=== PATIENT | male | born 1935 | race Caucasian/White ===

== ENCOUNTER → 2017-04-23 | Day surgery (SDC) | payer MEDICARE, OTHER ==
[~2017-04-23] MED LIST: Lactated Ringers 1,000 ML IV SCH; Propofol 200 MG/20 ML SDV IV ONE
[2017-04-23 12:20] VITALS: BP 132/65
--- NOTE | 2017-04-26 07:14 | OR ---
DATE OF OPERATION: 04/23/2017 PREOPERATIVE DIAGNOSIS: POSITIVE COLOGUARD. POSTOPERATIVE DIAGNOSIS: POSITIVE COLOGUARD. SURGEON: Lit Long MD PROCEDURE: COLONOSCOPY. ANESTHESIA: [employer] EMPLOYEE due to advanced age, CHF and memory impairment. COMPLICATIONS: None. SPECIMEN: None. FINDINGS: 1. Full-length colonoscopy. 2. Marginal bowel prep. 3. Pandiverticulosis with severe sigmoid diverticular disease. RECOMMENDATIONS: Routine follow up with medical provider. INDICATIONS: The patient has had prior normal colonoscopies. He at home had a positive Cologuard and was sent for colonoscopy. DESCRIPTION OF PROCEDURE: The patient was prepped and draped, placed in left lateral decubitus position. A lubricated Olympus colonoscope was inserted and easily advanced to the cecum where I directly visualized the ileocecal valve. There was a lot of stool in the cecum that made it difficult to see. The pouch was irrigated as best we could and no gross abnormalities were seen. The patient did have a marginal prep with a lot of liquid adherent stool throughout a lot of the colon, but mostly on the right and sigmoid area. Upon withdrawal, cecum, ascending and transverse colons appeared benign. He does have pandiverticular disease albeit very mild, however it is severe in the sigmoid region. Descending colon and sigmoid area showed no polyps, mass, ulceration, or bleeding sites. No vascular abnormalities or signs of colitis. There were no inflammatory changes associated with his diverticular disease. He did have solid stool in many areas of the sigmoid colon. We could not extract that during the test. The rectal vault appeared unremarkable. Once again stool present. Retroflexion showed no perianal lesions. Air was then suctioned. Scope was removed without complication. FREDA/SERGIO /[id number]
== END | disposition home or self-care (01) ==
LOC: CC.SDS 08:15
PROVIDERS: ATTEND Family Medicine
DX: Z12.11 Encounter for screening for malignant neoplasm of colon (principal); K57.30 Diverticulosis of large intestine without perforation or abscess without bleeding; N40.1 Benign prostatic hyperplasia with lower urinary tract symptoms; N39.43 Post-void dribbling; I50.9 Heart failure, unspecified; F32.9 Major depressive disorder, single episode, unspecified; E78.5 Hyperlipidemia, unspecified; I10 Essential (primary) hypertension; E55.9 Vitamin D deficiency, unspecified; Z79.82 Long term (current) use of aspirin; Z79.899 Other long term (current) drug therapy; Z90.49 Acquired absence of other specified parts of digestive tract; Z98.890 Other specified postprocedural states; Z95.2 Presence of prosthetic heart valve; Z78.9 Other specified health status; Z87.891 Personal history of nicotine dependence
CPT/HCPCS: 00810; G0121; J2704; J7120

== ENCOUNTER 2021-04-02 16:34 | Emergency (ER) | payer MEDICARE, OTHER ==
[2021-04-02 16:55] VITALS: BP 122/71; PULSE 104
[2021-04-02] MEDS ORDERED: Diphtheria,Pertussis(Acell),Tetanus Vaccine 0.5 ML Syringe IM ONE (17:18)
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
== END 2021-04-02 17:40 | disposition home or self-care (01) ==
LOC: CC.ED 16:34
DX: S51.812A Laceration without foreign body of left forearm, initial encounter (principal); S41.111A Laceration without foreign body of right upper arm, initial encounter; I25.10 Atherosclerotic heart disease of native coronary artery without angina pectoris; E78.00 Pure hypercholesterolemia, unspecified; I10 Essential (primary) hypertension; Z87.891 Personal history of nicotine dependence; Z79.82 Long term (current) use of aspirin; Z23 Encounter for immunization; W26.8XXA Contact with other sharp object(s), not elsewhere classified, initial encounter
CPT/HCPCS: 12002; 90471; 90715; 99282; 99283

== ENCOUNTER 2021-04-05 11:31 | Emergency (ER) | payer MEDICARE, OTHER ==
[2021-04-05 12:01] VITALS: BP 149/72; PULSE 81
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
== END 2021-04-05 12:54 | disposition home or self-care (01) ==
LOC: CC.ED 11:31
DX: Z48.817 Encounter for surgical aftercare following surgery on the skin and subcutaneous tissue (principal); I25.10 Atherosclerotic heart disease of native coronary artery without angina pectoris; E78.00 Pure hypercholesterolemia, unspecified; I10 Essential (primary) hypertension; F03.90 Unspecified dementia, unspecified severity, without behavioral disturbance, psychotic disturbance, mood disturbance, and anxiety; Z79.82 Long term (current) use of aspirin; Z79.899 Other long term (current) drug therapy
CPT/HCPCS: 99282; 99283

== ENCOUNTER 2021-05-17 17:25 | Emergency (ER) | payer MEDICARE, OTHER ==
--- NOTE | 2021-05-17 18:13 | EDM.PDOC ---
ED HPI GENERAL MEDICAL PROBLEM - General Chief Complaint: General Stated Complaint: headache Time Seen by Provider: 05/17/21 17:28 Source of Information: Reports: Patient, EMS, RN History Limitations: Reports: Altered Mental Status - History of Present Illness INITIAL COMMENTS - FREE TEXT/NARRATIVE: This patient is an 86 year old male that arrives via EMS. EMS reports patient c loser to [facility] but patient wanted to come to [place]. The patient reports told EMS that he had a headache. Patent told me he has headache and right sided abd pain. He also reports he hurts everywhere. The patient keeps his eyes closed on stretcher, but eye opens when spoken too. Patient reports that he has had headache and pain for "several days". Patient reports that he has been sleeping a lot lately. He reports he has been sleeping on the floor and in the bed. He reports that he has not been taking his medications like he should. He reports he got confused with his medication at home. The patient lives at home alone. EMS report home is clean and upkept. The patient is alert, oriented to place and self, but not to year. He has also been talking to the nurse about how people are communist. He is also talking about how his dad was a son of a bitc* and he just wanted to his mom. And some other random topics. Onset: Unknown/Unsure Duration: Other (unknown "several days") Location: Reports: Head, Abdomen, Back Quality: Reports: Ache Severity: Moderate Improves with: Reports: None Worsens with: Reports: None Associated Symptoms: Reports: Confusion, Headaches. Denies: Chest Pain, Cough, cough w sputum, Diaphoresis, Fever/Chills, Loss of Appetite, Malaise, Nausea/Vomiting, Rash, Seizure, Shortness of Breath, Syncope, Weakness - Related Data Allergies Allergy/AdvReac Type Severity Reaction Status Date / Time No Known Allergies Allergy Verified 05/17/21 18:56 Home Meds: Home Meds Ascorbic Acid [Vitamin C] 1,000 mg PO DAILY 04/22/17 [History] Aspirin [Halfprin] 81 mg PO DAILY 04/22/17 [History] Calcium Carbonate [Calcium] 2 tab PO DAILY 04/22/17 [History] Cholecalciferol (Vitamin D3) [Vitamin D] 2,000 unit PO DAILY 04/22/17 [History] Fenofibrate 160 mg PO DAILY 04/22/17 [History] Furosemide 10 mg PO DAILY 04/22/17 [History] Ginkgo Biloba 120 mg PO DAILY 04/22/17 [History] Losartan Potassium 100 mg PO DAILY 04/22/17 [History] Multivit-Min/FA/Lycopen/Lutein [Centrum Silver Tablet] 1 each PO DAILY 04/22/17 [History] [place]-3/DHA/Epa/Fish Oil [[place]-3 Fish Oil 1,000 MG Sfgl] 1,000 mg PO DAILY 04/22/17 [History] Propranolol HCl 40 mg PO BID 04/22/17 [History] Pyridoxine HCl (Vitamin B6) [Vitamin B-6] 100 mg PO DAILY 04/22/17 [History] Sertraline HCl 150 mg PO DAILY 04/22/17 [History] Ferrous Sulfate 325 mg PO DAILY 05/17/21 [History] Finasteride 5 mg PO DAILY 05/17/21 [History] Memantine [Namenda] 10 mg PO BID 05/17/21 [History] Pantoprazole Sodium 40 mg PO DAILY 05/17/21 [History] Tamsulosin HCl 0.4 mg PO DAILY 05/17/21 [History] traMADol [Ultram] 50 mg PO BID 05/17/21 [History] Past Medical History Cardiovascular History: Reports: CAD, High Cholesterol, Hypertension Musculoskeletal History: Reports: Back Pain, Chronic Psychiatric History: Reports: Dementia Social & Family History - Family History Family Medical History: No Pertinent Family History - Caffeine Use Caffeine Use: Reports: None ED ROS GENERAL - Review of Systems Review Of Systems: See Below Constitutional: Reports: No Symptoms HEENT: Reports: No Symptoms Respiratory: Reports: No Symptoms Cardiovascular: Reports: No Symptoms Endocrine: Reports: No Symptoms GI/Abdominal: Reports: Abdominal Pain : Reports: No Symptoms Musculoskeletal: Reports: No Symptoms Skin: Reports: No Symptoms Neurological: Reports: Confusion, Headache. Denies: Numbness, Seizure, Syncope, Tingling, Tremors, Trouble Speaking, Weakness, Change in Speech, Gait Disturbance Psychiatric: Reports: No Symptoms Hematologic/Lymphatic: Reports: No Symptoms Immunologic: Reports: No Symptoms ED EXAM, GENERAL - Physical Exam Exam: See Below Exam Limited By: No Limitations General Appearance: Alert, WD/WN, No Apparent Distress Eye Exam: Bilateral Eye: EOMI, Normal Inspection, PERRL Ears: Normal External Exam, Normal Canal, Hearing Grossly Normal, Normal TMs Ear Exam: Bilateral Ear: Auricle Normal, Canal Normal, TM normal Nose: Normal Inspection, Normal Mucosa, No Blood Throat/Mouth: Normal Inspection, Normal Lips, Normal Teeth (dentures), Normal Gums, Normal Oropharynx, Normal Voice, No Airway Compromise Head: Atraumatic, Normocephalic Neck: Normal Inspection, Supple, Non-Tender, Full Range of Motion Respiratory/Chest: No Respiratory Distress, Lungs Clear, Normal Breath Sounds, No Accessory Muscle Use, Chest Non-Tender Cardiovascular: Normal Peripheral Pulses, Regular Rate, Rhythm (98 on exam), No Edema, No Gallop, No JVD, No Murmur, No Rub Peripheral Pulses: 2+: Radial (L), Radial (R), Posterior Tibial (L), Posterior Tibial (R) GI/Abdominal: Normal Bowel Sounds, Soft, Non-Tender, No Organomegaly, No Distention, No Abnormal Bruit, No Mass, Pelvis Stable (Male) Exam: Deferred Rectal (Males) Exam: Deferred Back Exam: Normal Inspection, Full Range of Motion. No: CVA Tenderness (L), CVA Tenderness (R) Extremities: Normal Inspection, Normal Range of Motion, Non-Tender, No Pedal Edema, Normal Capillary Refill Neurological: Alert, CN II-XII Intact, Normal Cognition, No Motor/Sensory Deficits, Confused, Other (oriented to self and place. Not time, would not answer. ) Psychiatric: Normal Affect, Normal Mood Skin Exam: Warm, Dry, Intact, Normal Color, No Rash Lymphatic: No Adenopathy #1 Interpretation EKG Date: 05/17/21 Time: 18:12 Rate (Beats/Min): 103 QRS: RBBB Comparison: No Change Course - Vital Signs Last Recorded V/S: Last Vital Signs Temp 97.2 F 05/17/21 19:02 Pulse 87 05/17/21 19:02 Resp 20 05/17/21 19:02 BP 120/81 05/17/21 19:02 Pulse Ox 94 L 05/17/21 19:02 - Orders/Labs/Meds Orders: Active Orders 24 hr Category Date Time Status Chest 2V [CR] Stat Exams 05/17/21 17:22 Taken Head wo Cont [CT] Stat Exams 05/17/21 17:22 Taken CULTURE BLOOD [BC] Stat Lab 05/17/21 18:07 Received CULTURE BLOOD [BC] Stat Lab 05/17/21 18:07 Received PTT,PARTIAL THROMBOPLSTIN TIME [COAG] Stat Lab 05/17/21 20:05 Ordered Heparin Sodium/0.45% NaCl [Heparin 25,000 Units in 1/2 Med 05/17/21 20:15 Ordered NS 500 ML] 500 ml IV TITRATE Blood Culture x2 Reflex Set [OM.PC] Stat Oth 05/17/21 17:32 Ordered Medication Orders Heparin Sodium/Sodium Chloride (Heparin 25,000 Units In 1/2 Ns 500 Ml) 500 mls @ 0 mls/hr IV TITRATE HARRISON; Protocol Labs: Laboratory Tests 05/17/21 05/17/21 05/17/21 Range/Units 17:33 18:07 18:07 WBC 10.3 (4.0-11.0) 10^3/uL RBC 4.64 (4.50-6.00) x10^6/uL Hgb 14.8 (14.0-18.0) g/dL Hct 44.5 (42.0-52.0) % MCV 95.9 (83.0-97.0) fL MCH 31.9 (27.0-32.0) pg MCHC 33.3 (32.0-36.0) g/dL RDW Coeff of David 16.9 H (11.0-15.0) % Plt Count 178 (150-400) 10^3/uL Immature Gran % (Auto) 0.2 (0.0-4.9) % Neut % (Auto) 76.5 H (41-71) % Lymph % (Auto) 13.2 L (24-44) % Sierra % (Auto) 10.0 (0-10) % Eos % (Auto) 0.0 (0-6) % Baso % (Auto) 0.1 (0-1) % Neut # (Auto) 7.86 (1.80-8.00) x10^3/uL Lymph # (Auto) 1.36 (0.60-5.00) 10^3/uL Sierra # (Auto) 1.03 (0.00-1.50) 10^3/uL Eos # (Auto) 0.00 (0.00-1.50) 10^3/uL Baso # (Auto) 0.01 (0.00-0.50) 10^3/uL Immature Gran # (Auto) 0.02 (0.00-0.49) 10^3/uL PT (9.7-12.3) SEC INR (0.92-1.18) Sodium 145 (136-145) mEq/L Potassium 5.0 (3.5-5.0) mEq/L Chloride 107 H (98-106) mEq/L Carbon Dioxide 29 (21-32) mmol/L BUN 40 H (7-18) mg/dL Creatinine 1.8 H (0.7-1.3) mg/dL Est Cr Clr Drug Dosing TNP Estimated GFR (MDRD) 36 L (>=60) mL/min Glucose 82 (75-99) mg/dL Lactic Acid (0.4-2.0) mmol/L Calcium 9.4 (8.4-10.1) mg/dL Total Bilirubin 1.6 H (0.0-1.0) mg/dL AST 186 H (15-37) U/L ALT 106 H (12-78) U/L Alkaline Phosphatase 108 (46-116) U/L Creatine Kinase 346 H (35-232) U/L Troponin I 11.877 H* (0.00-0.06) ng/mL Total Protein 6.8 (6.4-8.2) g/dL Albumin 3.5 (3.4-5.0) g/dL Urine Color Dark yellow (YELLOW) Urine Appearance Cloudy (CLEAR) Urine pH 5.5 (4.5-8.0) Ur Specific [place] >= 1.030 H (1.003-1.020) Urine Protein 100 H (NEGATIVE) mg/dL Urine Glucose (UA) Negative (NEGATIVE) mg/dL Urine Ketones Negative (NEGATIVE) mg/dL Urine Occult Blood Large H (NEGATIVE) Urine Nitrite Negative (NEGATIVE) Urine Bilirubin Negative (NEGATIVE) Urine Urobilinogen 0.2 (0.2-1.0) EU/dL Ur Leukocyte Esterase Trace H (NEGATIVE) U Hyaline Cast (Auto) Moderate H (NOT SEEN) /LPF Urine RBC >100 H (0-5) /HPF Urine WBC 0-5 (0-5) /HPF Ur Squamous Epith Cells Occasional H (NOT SEEN) /HPF Urinalysis Comment 05/17/21 05/17/21 Range/Units 18:07 18:07 WBC (4.0-11.0) 10^3/uL RBC (4.50-6.00) x10^6/uL Hgb (14.0-18.0) g/dL Hct (42.0-52.0) % MCV (83.0-97.0) fL MCH (27.0-32.0) pg MCHC (32.0-36.0) g/dL RDW Coeff of David (11.0-15.0) % Plt Count (150-400) 10^3/uL Immature Gran % (Auto) (0.0-4.9) % Neut % (Auto) (41-71) % Lymph % (Auto) (24-44) % Sierra % (Auto) (0-10) % Eos % (Auto) (0-6) % Baso % (Auto) (0-1) % Neut # (Auto) (1.80-8.00) x10^3/uL Lymph # (Auto) (0.60-5.00) 10^3/uL Sierra # (Auto) (0.00-1.50) 10^3/uL Eos # (Auto) (0.00-1.50) 10^3/uL Baso # (Auto) (0.00-0.50) 10^3/uL Immature Gran # (Auto) (0.00-0.49) 10^3/uL PT 15.0 H (9.7-12.3) SEC INR 1.41 H (0.92-1.18) Sodium (136-145) mEq/L Potassium (3.5-5.0) mEq/L Chloride (98-106) mEq/L Carbon Dioxide (21-32) mmol/L BUN (7-18) mg/dL Creatinine (0.7-1.3) mg/dL Est Cr Clr Drug Dosing Estimated GFR (MDRD) (>=60) mL/min Glucose (75-99) mg/dL Lactic Acid 2.3 H (0.4-2.0) mmol/L Calcium (8.4-10.1) mg/dL Total Bilirubin (0.0-1.0) mg/dL AST (15-37) U/L ALT (12-78) U/L Alkaline Phosphatase (46-116) U/L Creatine Kinase (35-232) U/L Troponin I (0.00-0.06) ng/mL Total Protein (6.4-8.2) g/dL Albumin (3.4-5.0) g/dL Urine Color (YELLOW) Urine Appearance (CLEAR) Urine pH (4.5-8.0) Ur Specific [place] (1.003-1.020) Urine Protein (NEGATIVE) mg/dL Urine Glucose (UA) (NEGATIVE) mg/dL Urine Ketones (NEGATIVE) mg/dL Urine Occult Blood (NEGATIVE) Urine Nitrite (NEGATIVE) Urine Bilirubin (NEGATIVE) Urine Urobilinogen (0.2-1.0) EU/dL Ur Leukocyte Esterase (NEGATIVE) U Hyaline Cast (Auto) (NOT SEEN) /LPF Urine RBC (0-5) /HPF Urine WBC (0-5) /HPF Ur Squamous Epith Cells (NOT SEEN) /HPF Urinalysis Comment Meds: Medications Generic Name Dose Route Start Last Admin Trade Name Freq PRN Reason Stop Dose Admin Heparin Sodium/Sodium Chloride 500 mls @ 0 mls/hr 05/17/21 20:15 Heparin 25,000 Units In 1/2 Ns 500 Ml IV TITRATE HARRISON Protocol 12 UNITS/KG/HR Discontinued Medications Generic Name Dose Route Start Last Admin Trade Name Frebecky PRN Reason Stop Dose Admin Aspirin 324 mg 05/17/21 19:11 05/17/21 19:59 Aspirin 81 Mg Tab.Chew PO 05/17/21 19:12 324 mg ONETIME ONE Administration Heparin Sodium (Porcine) 4,000 units 05/17/21 20:05 Heparin Sodium 5,000 Units/Ml Vial IVPUSH 05/17/21 20:06 ONETIME ONE Sodium Chloride 1,000 mls @ 1,000 mls/hr 05/17/21 18:36 05/17/21 18:42 Normal Saline IV 05/17/21 19:35 1,000 mls/hr .BOLUS ONE Administration - Radiology Interpretation Free Text/Narrative:: Head CT: There is a 5cm mass unchanged in size from previous scan 5 years ago. Recommend contrast MRI. No bleed, or acute infarct. CXR: Cardiomegaly without vascular congestion or pulmonary edema. Valvuloplasty. Unipolar pacer. Blunting the right costophrenic angle probably represents a small effusion. CT Results Date: 05/17/21 CT Results Time: 19:30 - Re-Assessments/Exams Free Text/Narrative Re-Assessment/Exam: 05/17/21 19:46 I called and spoke to Dr. Isaacs in the ER at [facility]. She has accepted the patient. The patient has refused to go to [place] even though that is were most of his records are. He told me never to mention [place] again. They will call back if they want heparin started. At this time, hold. 05/17/21 20:[address] [facility] called and want patient started on heparin bolus and gtt. Will start. Departure - Departure Time of Disposition: 20:03 Disposition: DC/Tfer to Acute Hospital 02 Condition: Serious Clinical Impression: Elevated troponin I level, Renal insufficiency Altered mental status Qualifiers: Altered mental status type: disorientation Qualified Code(s): R41.0 - Disorientation, unspecified - Discharge Information *PRESCRIPTION DRUG MONITORING PROGRAM REVIEWED*: Not Applicable *COPY OF PRESCRIPTION DRUG MONITORING REPORT IN PATIENT IHSAN: Not Applicable Referrals: PCP,None [Primary Care Provider] - Forms: ED Department Discharge Sepsis Event Note (ED) - Evaluation Sepsis Screening Result: No Definite Risk - Focused Exam Vital Signs: Vital Signs Temp Pulse Resp BP Pulse Ox 05/17/21 19:02 97.2 F 87 20 120/81 94 L 05/17/21 17:38 98.7 F 123 H 18 113/72 92 L - My Orders Last 24 Hours: My Active Orders 05/17/21 17:22 Chest 2V [CR] Stat Head wo Cont [CT] Stat 05/17/21 17:32 Blood Culture x2 Reflex Set [OM.PC] Stat 05/17/21 18:07 CULTURE BLOOD [BC] Stat CULTURE BLOOD [BC] Stat 05/17/21 20:05 PTT,PARTIAL THROMBOPLSTIN TIME [COAG] Stat 05/17/21 20:15 Heparin Sodium/0.45% NaCl [Heparin 25,000 Units in 1/2 NS 500 ML] 500 ml IV TITRATE - Assessment/Plan Last 24 Hours: My Active Orders 05/17/21 17:22 Chest 2V [CR] Stat Head wo Cont [CT] Stat 05/17/21 17:32 Blood Culture x2 Reflex Set [OM.PC] Stat 05/17/21 18:07 CULTURE BLOOD [BC] Stat CULTURE BLOOD [BC] Stat 05/17/21 20:05 PTT,PARTIAL THROMBOPLSTIN TIME [COAG] Stat 05/17/21 20:15 Heparin Sodium/0.45% NaCl [Heparin 25,000 Units in 1/2 NS 500 ML] 500 ml IV TITRATE Plan: PLEASE SEE RN NOTE FOR PFSH This patient is being transferred to [facility]. The risk vs benefits explained to the patient and he has accepted the transfer. The risk of transfer is mvc, , worsening of condition, cardiac arrest. The risk of staying in [place] is no party planner, no MRI, . The benefits of staying in [place] is close to home. The benefits of transfer are higher level of care, MRI, party planner.
[2021-05-17 18:31] LABS: CHLORIDE,CL 107 mEq/L (98-106); SODIUM,NA 145 mEq/L (136-145)
[2021-05-17] MEDS ORDERED: Sodium Chloride 0.9% 1,000 ML IV ONE (18:36)
[2021-05-17 19:02] VITALS: BP 120/81; PULSE 87
[2021-05-17] MEDS ORDERED: Aspirin 81 MG Tab.Chew PO ONE (19:11)
[2021-05-17] MEDS ORDERED: Heparin Sodium 5,000 Units/ML Vial IVPUSH ONE (20:05)
[2021-05-17] MEDS ORDERED: Heparin Sodium/0.45% NaCl 500 ML IV SCH (20:15)
== END 2021-05-17 20:35 ==
LOC: CC.ED 17:25
DX: R41.0 Disorientation, unspecified (principal); N28.9 Disorder of kidney and ureter, unspecified; R79.89 Other specified abnormal findings of blood chemistry; I25.10 Atherosclerotic heart disease of native coronary artery without angina pectoris; E78.00 Pure hypercholesterolemia, unspecified; I10 Essential (primary) hypertension; Z79.82 Long term (current) use of aspirin; Z79.899 Other long term (current) drug therapy
CPT/HCPCS: 36415; 70450; 71046; 80053; 81001; 82550; 83605; 84484; 85025; 85610; 85730; 87040; 93005; 93010; 96374; 99284; 99285-25; A9270-GY; J1644; J7030